=== PATIENT | female | born 1965 | race Caucasian/White ===

== ENCOUNTER 2025-08-01 11:13 | Emergency (ER) | payer OTHER ==
[2025-08-01 11:22] VITALS: BMI 31.8
[2025-08-01] MEDS ORDERED: FAMOTIDINE 20 MG/50 ML IVPB 20 MG/50 ML MG IVPB ONE (12:06)
[2025-08-01] MEDS ORDERED: ACETAMINOPHEN INJECTION 100 ML ONE (12:06)
[2025-08-01] MEDS: LACTATED RINGERS SOLUTION 1000 ML INFUS.BAG IV ONE (12:33)
[2025-08-01] MEDS: FAMOTIDINE 20 MG/50 ML IVPB 20 MG/50 ML MG IVPB ONE (12:34)
[2025-08-01] MEDS: ACETAMINOPHEN 1000 MG/100 ML BAG IVPB ONE (12:34)
[2025-08-01 12:40] LABS: BASOPHILS # 0.01 x10^3/uL (0.01-0.08); EOSINOPHIL % 0.2 % (0.7-5.8); EOSINOPHILS # 0.01 x10^3/uL (0.04-0.36); MEAN CELL VOLUME 87.5 fl (79.4-94.8); MEAN PLT VOLUME 13.7 fl (9.4-12.3)
[2025-08-01 12:42] LABS: ABSOLUTE IMMATURE GRANULOCYTES 0.01 x10^3/uL (0.0-0.031); IMMATURE PLATELET FRACTION # 16.50 x10^3/uL; MCHC 30.9 g/dl (32.2-35.5); MONOCYTE # 0.55 x10^3/uL (0.24-0.86); MONOCYTE % 10.8 % (4.7-12.5); RDW 14.3 % (12.3-16.6)
[2025-08-01 12:58] LABS: GLUCOSE,RANDOM 104.0 mg/dL (74-106)
[2025-08-01 12:59] LABS: TOT PROT 7.1 g/dl (6.4-8.2)
[2025-08-01 13:00] LABS: CO2 18.0 mmol/L (21-32)
[2025-08-01 13:02] LABS: ALK PHOS 83.0 U/L (40-150)
[2025-08-01 13:04] LABS: SGOT/AST 35.0 U/L (5-34); SGPT/ALT 35.0 U/L (0-55)
[2025-08-01 13:05] LABS: CREATININE 0.77 mg/dL (0.55-1.3)
[2025-08-01 13:27] LABS: HIV INTERPRETATION NEGATIVE (NEGATIVE)
[2025-08-01 15:03] VITALS: BP 108/73; PULSE 89; RESP 16; TEMP 99
[2025-08-01 16:17] LABS: HCV DIAGNOSTIC IN-HOUSE W/RFLX NON-REACTIVE (NONREACTIVE)
== END 2025-08-01 17:07 | disposition home or self-care (01) ==
LOC: JER 11:13
PROC: 3E033GC Introduction of Other Therapeutic Substance into Peripheral Vein, Percutaneous Approach (ICD-10-PCS; principal; 2025-08-01)
PROC: 3E033NZ Introduction of Analgesics, Hypnotics, Sedatives into Peripheral Vein, Percutaneous Approach (ICD-10-PCS; 2025-08-01)
DX: R19.7 Diarrhea, unspecified (principal); R11.2 Nausea with vomiting, unspecified; R53.1 Weakness; R10.13 Epigastric pain; R68.83 Chills (without fever)
CPT/HCPCS: 36415; 80053; 82272; 83735; 84484; 85025; 86803; 87040; 87389; 99284-25